=== PATIENT | female | born 1995 | race Caucasian/White ===

== ENCOUNTER 2017-01-26 21:12 | Emergency (ER) | payer OTHER ==
--- NOTE | 2017-01-26 23:21 | ED ---
Abdominal Pain/Female - HPI Summary HPI Summary: Patient presents to the ED with CC of intermittent pain which is diffusely across the lower abdomen with worsening pain on the right side. She states she has had an IUD placed on January 06. She was not able to return to test the strings after the placement as she came back to [place] for school. She is from [place]. She has had a history of ovarian cysts which have been controlled with OCP' s up until 1 month ago. At that time she decided to have an IUD placed and has been experiencing intermittent pain, cramping and spotting including clots. She checked the strings herself 1 week after placement and felt them, but now, 3 weeks later is unable to feel the strings. Current pain is 6/10, is intermittent, described as cramps and currently not passing any clots. She is otherwise healthy and takes no medications. Denies fevers, sweats or chills. Negative simmons's, negative mcburney's point. Denies flank pain. - History of Current Complaint Chief Complaint: EDLizettin Stated Complaint: CRAMPING/PROBLEMS WITH IUD Time Seen by Provider: 01/26/17 22:19 Hx Obtained From: Patient ?: No Onset/Duration: Sudden Onset Timing: Minutes Severity Initially: Moderate Severity Currently: Moderate Pain Intensity: 7 Pain Scale Used: 0-10 Numeric Location: Suprapubic Radiates: No Character: Cramping Aggravating Factor(s): Nothing Alleviating Factor(s): Nothing - Risk Factors Ectopic Risk Factor: IUD Use Ovarian Torsion Risk Factor: Reproductive Age, Ovarian Cysts/Tumors Allergies/Adverse Reactions: Allergies Allergy/AdvReac Type Severity Reaction Status Date / Time No Known Allergies Allergy Verified 01/26/17 21:16 PMH/Surg Hx/FS Hx/Imm Hx Previously Healthy: Yes Endocrine/Hematology History: Denies: Hx Diabetes Cardiovascular History: Denies: Hx Congestive Heart Failure, Hx Hypertension Infectious Disease History: No Infectious Disease History: Denies: Traveled Outside the [place] in Last 30 Days - Social History Occupation: Unemployed Lives: With Family Alcohol Use: Occasionally Hx Substance Use: No Substance Use Type: Reports: None Hx Tobacco Use: No Smoking Status (MU): Never Smoked Tobacco Review of Systems Constitutional: Negative Eyes: Negative Cardiovascular: Negative Respiratory: Negative Positive: Abdominal Pain - suprapubic and RLQ Positive: no symptoms reported, see HPI Musculoskeletal: Negative Neurological: Negative Psychological: Normal All Other Systems Reviewed And Are Negative: Yes Physical Exam Triage Information Reviewed: Yes Vital Signs On Initial Exam: Initial Vitals Temp Pulse Resp BP Pulse Ox 97.6 F 102 16 163/88 97 01/26/17 21:17 01/26/17 21:17 01/26/17 21:17 01/26/17 21:17 01/26/17 21:17 Vital Signs Reviewed: Yes Appearance: Positive: Well-Appearing, Well-Nourished Skin: Positive: Warm, Skin Color Reflects Adequate Perfusion Head/Face: Positive: Normal Head/Face Inspection Eyes: Positive: EOMI, LUIGI, Conjunctiva Clear Neck: Positive: Supple, No Lymphadenopathy Respiratory/Lung Sounds: Positive: Clear to Auscultation, Breath Sounds Present , Subcutaneous Emphysema Cardiovascular: Positive: RRR, Pulses are Symmetrical in both Upper and Lower Extremities Musculoskeletal: Positive: Normal, Strength/ROM Intact Neurological: Positive: Sensory/Motor Intact, Alert, Oriented to Person Place, Time, Speech Normal Psychiatric: Positive: Normal - Toni Coma Scale Coma Scale Total: 15 Diagnostics - Vital Signs Vital Signs Temp Pulse Resp BP Pulse Ox 01/26/17 21:17 97.6 F 102 16 163/88 97 - Laboratory Result Diagrams: 01/26/17 23:20 01/26/17 23:20 Lab Statement: Any lab studies that have been ordered have been reviewed, and results considered in the medical decision making process. Abdominal Pain Fem Course/Dx - Course Course Of Treatment: Current pain is 6/10, is intermittent, described as cramps and currently not passing any clots. She is otherwise healthy and takes no medications. Denies fevers, sweats or chills. Negative simmons's, negative mcburney's point. Denies flank pain. US shows IUD in a very low position and will likely need readjustment or replacement. Patient is referred to OBGYN for repositioning in 1-[address] Donnelly in ED who agrees to not attempt to dislodge it and have her follow up. Patient made aware and is OK with plan. - Diagnoses Differential Diagnosis: Positive: Ectopic , Ovarian Cyst, Other - IUD placment Provider Diagnoses: IUD complication Discharge - Discharge Plan Condition: Stable Disposition: HOME Prescriptions: HYDROcodone/ACETAMIN 5-325 MG* [[place] 5-325 TAB*] 1 tab PO Q4H PRN #12 tab MDD 6 PRN Reason: Pain [facility] - Pebbles Melton MD [Medical Doctor] - Additional Instructions: Follow up with OBGYN office within 2 days. Call office tomorrow to make appt and explain why you were seen in the ED. I have given you hydrocodone for pain relief. Only take this medication if OTC Tylenol 650mg is not improving your symptoms.
[2017-01-26 23:57] LABS: Hematocrit 41 % (35-47); Hemoglobin 13.8 g/dl (12.0-16.0); Mean Corpuscular HGB Conc 34 g/dl (31-36); Mean Corpuscular Hemoglobin 29 pg (27-31); Mean Corpuscular Volume 85 fL (80-97); Mean Platelet Volume 8 um3 (7.4-10.4); Red Blood Count 4.81 10^6/ul (4.0-5.4); Red Cell Distribution Width 15 % (10.5-15); White Blood Count 10.5 10^3/ul (3.5-10.8)
[2017-01-27 00:02] LABS: ALT 21 U/L (7-52); AST 17 U/L (13-39); Albumin 4.2 g/dL (3.2-5.2); Alkaline Phosphatase 76 U/L (34-104); Anion Gap 7 mmol/L (2-11); BUN/Creatinine Ratio 14.3 (8-20); Blood Urea Nitrogen 11 mg/dL (6-24); CO2 Carbon Dioxide 27 mmol/L (22-32); Calcium 9.6 mg/dL (8.6-10.3); Chloride 103 mmol/L (101-111); EGFR African American 121.7 (>60); EGFR Non-African American 94.6 (>60); Globulin 3.1 g/dL (2-4); Glucose 99 mg/dL (70-100); Sodium 137 mmol/L (133-145); Total Protein 7.3 g/dL (6.4-8.9)
[2017-01-27] MEDS ORDERED: HYDROcodone/ACETAMIN 5-325 MG* 1 TAB PO ONE (01:17)
[2017-01-27 01:27] LABS: Urine Bacteria 1+ (Absent); Urine Bilirubin Negative (Negative); Urine Glucose Negative (Negative); Urine Nitrite Negative (Negative)
[2017-01-27 01:39] VITALS: BP 126/82
--- NOTE | 2017-01-27 07:44 | RAD ---
INDICATION: Pelvic pain COMPARISON: None TECHNIQUE: Longitudinal and transverse transvaginal scans of the pelvis were obtained. FINDINGS: Uterus: The uterus is normal in size. There are no focal masses. The uterus measures 6.3 x 3.9 x 4.4 cm. Endometrial thickness: The endometrial thickness is measured at 0.7 cm. There is an IUD which appears positioned low within the uterine cavity. This requires clinical evaluation. Free fluid: There is no significant free fluid . Ovaries: The ovaries are normal in size. The right ovary measures 3.4 x 3.0 x 3.1 cm. The left ovary measures 2.6 x 1.4 x 1.2 cm. . Doppler interrogation demonstrates flow to each ovary. Other: None IMPRESSION: APPARENT LOW PLACEMENT OF THE IUD. SUGGEST CLINICAL EVALUATION. OTHERWISE UNREMARKABLE EXAMINATION.
== END 2017-01-27 01:38 | disposition home or self-care (01) ==
LOC: ED 21:12
DX: T83.84XA Pain due to genitourinary prosthetic devices, implants and grafts, initial encounter (principal); R10.31 Right lower quadrant pain; Z97.5 Presence of (intrauterine) contraceptive device
CPT/HCPCS: 36415; 76830; 80053; 81003; 81015; 84702; 85025; 87086; 99282